=== PATIENT | female | born 1940 | race Caucasian/White ===

== ENCOUNTER 2017-05-25 18:28 | Inpatient (IN) ==
[2017-05-25 19:54] LABS: Hematocrit 28.6 % (35.3-44.9); Hemoglobin 9.2 g/dL (11.5-15.4); Mean Corpuscular HGB Conc 32.2 g/dL (31.6-35.5); Mean Corpuscular Hemoglobin 35.5 pg (28.0-33.3); Mean Corpuscular Volume 110.4 fL (83.0-100.0); Mean Platelet Volume 12.7 fL (9.4-12.4); Platelet Count 129 K/mcL (140-400); Red Blood Count 2.59 M/mcL (3.82-4.97); Red Cell Distribution Width 17.9 % (11.5-14.5)
[2017-05-25 20:20] LABS: Calcium 9.2 mg/dL (8.6-10.3); Potassium 4.3 mEq/L (3.5-5.1)
[2017-05-25 20:26] LABS: Thyroid Stimulating Hormone 4.969 mcIU/mL (0.340-5.600)
[2017-05-25] MEDS ORDERED: Furosemide 20 MG/2 ML VIAL IVP ONE (22:15)
--- NOTE | 2017-05-25 22:48 | Emergency Department Note ---
Disposition Clinical Impression: New onset a-fib Chest pain Qualifiers: Chest pain type: other chest pain Qualified Code(s): R07.89 - Other chest pain Dyspnea Qualifiers: Dyspnea type: unspecified Qualified Code(s): R06.00 - Dyspnea, unspecified Disposition: Admitted As Inpatient Condition: Good Referrals: Shady Man MD [Primary Care Provider] - Forms: ED Satisfaction Letter Time of Disposition: 23:00 General Adult HPI - General Chief complaint: ED Chest Pain Stated complaint: CP/SOB Time Seen by Provider: 05/25/17 21:19 Source: patient, family Mode of arrival: ambulatory Limitations: no limitations Nursing Notes Reviewed: Yes Vital Signs Reviewed: Yes - History of Present Illness HPI Narrative: 76-year-old female with significant past medical history of chronic kidney disease and anemia presenting to the emergency Department chief complaint of shortness of breath and chest pressure. Patient states this started about 3-4 days ago. She assumed it was due to her and anemia because this happens when her hemoglobin gets low. But today she started having more chest pressure which was abnormal and decided to come to the emergency department. Patient states chest pain came out of nowhere. It radiates mildly to her back in between her shoulder blades. She denies any nausea, vomiting or diaphoresis with this pain. Patient denies any fever or abdominal pain. Pain Scale: 4 - Related Data Home Medications Medication Instructions Recorded Confirmed Allopurinol [Zyloprim] 100 mg PO QAM 11/29/14 05/25/17 Aspirin Enteric Coated [Aspirin EC] 81 mg PO 11/29/14 05/25/17 Celecoxib [Celebrex] 200 mg PO QAM 11/29/14 05/25/17 Lisinopril [Zestril] 10 mg PO QAM 11/29/14 05/25/17 Omeprazole [PriLOSEC] 20 mg PO Q48H 11/29/14 05/25/17 Simvastatin [Zocor] 20 mg PO QAM 11/29/14 05/25/17 Cyanocobalamin (B-12) [Vitamin B12] 1,000 mcg IM QMONTH 10/08/15 05/25/17 Atenolol [Tenormin] 25 mg PO DAILY 05/25/17 05/25/17 Gabapentin [Neurontin] 100 mg PO HS 05/25/17 05/25/17 Allergies Allergy/AdvReac Type Severity Reaction Status Date / Time Amoxicillin [From Augmentin] AdvReac Vomiting Verified 05/19/17 10:42 clavulanic acid AdvReac Vomiting Verified 05/19/17 10:42 [From Augmentin] indomethacin [From Indocin] AdvReac Vomiting Verified 05/19/17 10:42 All systems ED: reviewed and negative except as stated. Constitutional: Reports: weakness Cardiovascular: Reports: chest pain Respiratory: Reports: dyspnea Past Medical History - Past Medical History Attestation: Yes The following information was validated with the patient. Medical history: Reports: DVT, GERD, hyperlipidemia, hypertension, renal disease , other Surgical history: Reports: cataract, hysterectomy Psychiatric history: Reports: anxiety COW WASHER history: Reports: no COW WASHER history - Social History Smoking Status: Never smoker Smokeless Tobacco Status: No Alcohol use: Reports: none Drug use: Reports: none Physical Exam - General Limitations: no limitations General appearance: alert, in no apparent distress - Head Head exam: atraumatic, normocephalic, normal inspection - Eye Eye exam: Present: normal appearance. Absent: scleral icterus, conjunctival injection - ENT ENT exam: normal exam, mucous membranes moist - Neck Neck exam: Present: normal inspection, full ROM. Absent: tenderness, meningismus - Chest Chest inspection: Present: normal inspection, symmetric chest wall rise. Absent : tenderness, rash - Respiratory Respiratory exam: Present: normal lung sounds bilaterally. Absent: respiratory distress, wheezes - Cardiovascular Cardiovascular exam: Present: regular rate, irregular rhythm, normal heart sounds - Abdominal Exam Abdominal exam: Present: soft, Non-Tender. Absent: distention, guarding, rebound - Extremities Exam Extremities exam: Present: normal inspection, full ROM - Neurological Exam Neurological exam: Present: alert, oriented X3 - Psychiatric Psychiatric exam: Present: normal affect, normal mood - Skin Skin exam: Present: warm, intact Course Course Narrative: 76-year-old female presenting to the emergency department with chief complaint of chest pain and shortness of breath. She attributed this to her anemia. The patient's basic lab work completed in triage shows a hemoglobin at 9.2 which is unchanged from previous readings. EKG completed did show new onset atrial fibrillation. Patient is alert and oriented 3 in the room with stable vital signs at this time. We will plan to admit the patient for new onset atrial fibrillation. Patient agrees to this plan. All other labs within normal limits. - Reevaluation(s) Reevaluation #1: Spoke with the hospitalist on-call Dr. Robertson who agrees to accept the patient at this time. Patient is alert and oriented 3 in the room and stable vital signs at this time. She agrees with this plan. Vital Signs Temperature 98.9 F 05/25/17 18:36 Pulse Rate 62 05/25/17 18:36 Respiratory Rate 16 05/25/17 18:36 Blood Pressure 169/75 05/25/17 18:36 O2 Sat by Pulse Oximetry 99 05/25/17 18:36 Temperature 98.9 F 05/25/17 18:36 Pulse Rate 62 05/25/17 21:58 Respiratory Rate 15 05/25/17 21:58 Blood Pressure 188/87 05/25/17 21:58 O2 Sat by Pulse Oximetry 94 05/25/17 21:58 Oxygen Delivery Oxygen Delivery Room Air Medical Decision Making - Lab Data Result diagrams: 05/25/17 19:11 05/25/17 19:11 Lab Results 05/25/17 05/25/17 05/25/17 Range/Units 19:11 19:11 19:11 WBC 3.6 L (4.3-11.1) K/mcL RBC 2.59 L (3.82-4.97) M/mcL Hgb 9.2 L (11.5-15.4) g/dL Hct 28.6 L (35.3-44.9) % MCV 110.4 H (83.0-100.0) fL MCH 35.5 H (28.0-33.3) pg MCHC 32.2 (31.6-35.5) g/dL RDW 17.9 H (11.5-14.5) % Plt Count 129 L (140-400) K/mcL MPV 12.7 H (9.4-12.4) fL Sodium 138 (136-145) mEq/L Potassium 4.3 (3.5-5.1) mEq/L Chloride 106 (98-107) mEq/L Carbon Dioxide 25 (23-29) mEq/L BUN 29 H (8-23) mg/dL Creatinine 1.21 H (0.60-1.20) mg/dL Est GFR ( Amer) 52 L (> 60) Est GFR (Non-Af Amer) 43 L (> 60) BUN/Creatinine Ratio 24 (6-26) Glucose 95 (70-105) mg/dL Calculated Osmolality 292 (280-300) Calcium 9.2 (8.6-10.3) mg/dL Troponin I < 0.03 (< 0.04) ng/mL TSH 4.969 (0.340-5.600) mcIU/mL - EKG Data EKG #1 EKG attestation: Yes I reviewed and interpreted this EKG. EKG results narrative: Atrial fibrillation. [address] and T-wave abnormality. QRS 78, QTC 438. No signs of acute ST segment elevation or ischemia noted. Compared to previous EKG completed on 05/21/2016 new Atrial fibrillation noted but no other significant changes. Attestation Statement - Attestation Attestation: I examined this patient and my medical decision-making was reviewed with the Resident Physician. I agree with the documented findings, disposition and treatment plan as described except to the extent set forth below. Initial EKG was questionable, some p-waves were seen but difficult to determine if they were regular. Rhythm strip convincing for a-fib. No ischemic changes. Has h/o MDS, baseline platelets 110s. Hospitalist to admit.
[2017-05-26] MEDS ORDERED: Gabapentin 100 MG CAPSULE PO ONE (00:59)
[2017-05-26] MEDS ORDERED: Acetaminophen 325 MG TABLET PO PRN (07:49)
[2017-05-26] MEDS ORDERED: Naloxone 0.4 MG/ML INJ IVP PRN (07:49)
[2017-05-26] MEDS ORDERED: *HR* HYDROcodone/Acet 5/325 mg TABLET PO PRN (07:49)
--- NOTE | 2017-05-26 07:56 | Internal Med History&Physical ---
Date of Encounter: 05/26/17 Time of Encounter: 09:49 Assessment and Plan (1) New onset a-fib Current visit: Yes Status: Acute HR currently controlled Symptoms may have dated back to 4 days Patient is on atenolol at home, will switch to metoprolol Cardiology eval Obtain ECHO CHADs score is 2 for age and HTN Patient with MDS and knoan pancytopenia I will defer anticoagulation to cardiology (2) CHF (congestive heart failure) Current visit: Yes Status: Acute Possibly diastolic Obtain ECHO Continue lasix IV 40mg daily Patient is on ASA, BB and ACEI continue same Monitor chem Strict I/O daily weights Flis restriction diet cardiology eval Troponin is negative, will not trend. Qualifiers: Heart failure type: unspecified Heart failure chronicity: unspecified Qualified Code(s): I50.9 - Heart failure, unspecified (3) Pancytopenia Current visit: Yes Status: Chronic (4) CAD (coronary artery disease) Current visit: Yes Status: Chronic as in CHF Continue home meds Qualifiers: Coronary Disease-Associated Artery/Lesion type: [place] artery [place] vs. transplanted heart: [place] heart Associated angina: without angina Qualified Code(s): I25.10 - Atherosclerotic heart disease of [place] coronary artery without angina pectoris (5) Chronic kidney disease, stage 3 Current visit: Yes Status: Chronic chem is at baseline, continue to monitor avoid nephrotoxins (6) Gout Current visit: Yes Status: Chronic continue allopurinol Qualifiers: Gout site: unspecified site Gout etiology: unspecified cause Chronicity: chronic Presence of tophus: without tophus Qualified Code(s): M1A.9XX0 - Chronic gout, unspecified, without tophus (tophi) (7) MDS (myelodysplastic syndrome) with 5q deletion Current visit: Yes Status: Chronic continue home meds, follows up with onc here Continue gabapentin for neuropathy Internal Medicine - H&P: HPI Chief complaint: Shortness of breath Admitted From: Home Plans for Post Hospital Care: Home History of present illness: Ms. Huitron is a 76 year old female with medical history of myelodysplasia, pancytopenia, GERD, history of DVT, chronic renal disease stage III, who presented to the ER with 4 days history of shortness of breath and 2 days history of chest pressure. She denies palpitations, but she reports substernal non-radiating chest pressure which started 2 days ago. She also reports mild leg swelling and shortness of breath on minimal exertion, she denies orthopnea, or PND. She denies nausea, vomiting, diarrhea, diaphoresis, she denies sick contacts, fever or chills Work up in the ER revealed CXR with interstitial pulmonary edema, Pulmonary vascular congestion and an EKG showed a new Afib. HR is controlled. TSH and Mag are WNL, other chem unremarkable, stable pancytopenia She received lasix which helped with some of her symptoms She will admitted inpatient for duresis, afib eval . She is not hypoxic. Past Med Surg Social Fam HX - Past Medical History Medical history: cancer, DVT, GERD, hyperlipidemia, hypertension, renal disease , other Psychiatric history: anxiety - Past Surgical History Surgical History: cataract, hysterectomy - Social History Smoking Status: Never smoker Smokeless Tobacco Status: No Alcohol use: none Drug use: none - Family History Mother Living Status: Hx Family Cancer: Yes (MULTIPLE MYELOMA) Father Living Status: Sister Living Status: Hx Family Cardiac Disorders: Yes (hypertension) Brother Living Status: Hx Family Cardiac Disorders: Yes (Hypertension) Internal Medicine - H&P: Meds Allopurinol [Zyloprim] 100 mg PO QAM 11/29/14 [History] Aspirin Enteric Coated [Aspirin EC] 81 mg PO HS 11/29/14 [History] Celecoxib [Celebrex] 200 mg PO QAM 11/29/14 [History] Lisinopril [Zestril] 10 mg PO QAM 11/29/14 [History] Omeprazole [PriLOSEC] 20 mg PO Q48H 11/29/14 [History] Simvastatin [Zocor] 20 mg PO QAM 11/29/14 [History] Cyanocobalamin (B-12) [Vitamin B12] 1,000 mcg IM QMONTH 10/08/15 [History] Atenolol [Tenormin] 25 mg PO DAILY 05/25/17 [History] Gabapentin [Neurontin] 100 mg PO HS 05/25/17 [History] 3 Allergy/AdvReac Type Severity Reaction Status Date / Time Amoxicillin [From Augmentin] AdvReac Vomiting Verified 05/19/17 10:42 clavulanic acid AdvReac Vomiting Verified 05/19/17 10:42 [From Augmentin] indomethacin [From Indocin] AdvReac Vomiting Verified 05/19/17 10:42 All Systems PM: A 10-system review of systems was performed and is negative for pertinent findings except as documented above in the HPI. - Constitutional Constitutional: no chills, no fever(s), no night sweats - EENT Eyes: no change in vision, no discharge, no pain, no photophobia Ears: no ear discharge, no ear pain, no tinnitus Nose, mouth and throat: no dysphagia, no nasal discharge, no neck pain, no sore throat - Cardiovascular Cardiovascular ROS IM: as per HPI - Respiratory Respiratory: as per HPI - Gastrointestinal Gastrointestinal: no abdominal pain, no diarrhea, no hematemesis, no hematochezia, no melena, no nausea, no vomiting - Genitourinary Genitourinary: no change in urinary stream, no dysuria, no flank pain, no hematuria - Musculoskeletal Musculoskeletal ROS IM: as per HPI - Integumentary Integumentary IM: no rash, no unusual bruising - Neurological Neurological ROS: as per HPI - Hematologic/Lymphatic Hematologic/Lymphatic: no easy bruising - Constitutional Vitals: Temp Pulse Resp BP Pulse Ox 98.6 F 65 14 142/77 93 05/26/17 07:32 05/26/17 07:32 05/26/17 07:32 05/26/17 07:32 05/26/17 07:32 General appearance: Present: A&O X 3, no acute distress, obese - Head Head exam: Present: atraumatic, normocephalic - Eye Eye exam: Present: PERRL, conjuntiva pink, sclera anicteric Pupils: Present: PERRL - Neck Neck exam general surgery: Present: supple, trachea midline. Absent: lymphadenopathy - Respiratory Respiratory exam: Present: rales - Cardiovascular Cardiovascular exam: Present: bradycardia, irregular rhythm, +S1, +S2. Absent: diastolic murmur, gallop, rubs, systolic murmur - GI/Abdominal GI/Abdominal exam: Present: normal bowel sounds, soft, no peritoneal signs. Absent: distended, tenderness - Extremities Exam Extremities exam: Present: pedal edema (trace), warm, radial pulses palpable and symmetrical. Absent: calf tenderness, cyanotic - Neurological Exam Neurological exam: Present: alert, CN II-XII intact, oriented X3, no focal deficits. Absent: pronater drift, facial droop, speech deficit - Skin Skin exam: Present: dry, intact Internal Med - H&P Results - Labs CBC & Chem 7: 05/25/17 19:11 05/25/17 19:11
[2017-05-26] MEDS ORDERED: Cyanocobalamin (B-12) 1,000 MCG/ML VIAL IM SCH (08:00)
[2017-05-26] MEDS: Furosemide 40 MG/4 ML VIAL IVP SCH (08:43)
[2017-05-26] MEDS: Aspirin Enteric Coated 81 MG Tablet PO SCH (08:58)
[2017-05-26] MEDS: *HR* Heparin 5,000 UNIT/ML VIAL SQ SCH ×3 (08:58→22:50)
--- NOTE | 2017-05-26 14:25 | Cardiology Consult Note ---
<Pal Garcia - Last Filed: 05/26/17 15:24> Date of Encounter: 05/26/17 Time of Encounter: 14:30 Assessment and Plan (1) New onset a-fib Current Visit: Yes Status: Acute Per Cardiology: Apparent new onset of atrial fibrillation. On Lopressor 12.5 mg by mouth twice a day. Currently rate controlled. Troponin negative 1. TSH stable. Net I&O - 3200ml. BNP only 400's, edema on CXR. Echo pending. Appears improved with IV Lasix. Further recommendations after echo. [facility] from 2011: Impression: Normal coronary angiography; there was no evidence of significant coronary artery disease. Regarding long-term anticoagulation, patient with history of DVT-- was on Coumadin, however discontinued due to severe anemia requiring blood transfusions. Noted to have to myelodysplastic syndrome and pancytopenia. Patient and sister aware of poor candidate for anticoagulation other than baby aspirin she is currently taking. They are aware of increased stroke risk. Education provided regarding strokelike symptoms and when to call 911. (2) MDS (myelodysplastic syndrome) with 5q deletion Current Visit: Yes Status: Chronic Per Cardiology: Oncology note reviewed from April 2017 and appears to be transfusion dependent. (3) Pancytopenia Current Visit: Yes Status: Chronic Per Cardiology: Appears stable. Discussion w patient/family: The assessment and plan as outlined above was discussed with the patient and/or family members who expressed understanding and agreement. All questions were answered. Thank you for involving us in the care of your patient. Please call with any questions. History of Present Illness Consult date: 05/26/17 Requesting physician: Rg Woodson Consult reason: afib Chief complaint: SOb, CP, Palps History of present illness: Ms. Huitron is a 76 year old female with a relevant past medical history of mild dysplastic syndrome, pancytopenia, CK D stage III, mild nonobstructive CAD , GERD. Cardiology consult for concerns of shortness of breath, palpitations, chest tightness and new onset A. fib. Patient reports the past few days increased shortness of breath at rest and with exertion, midsternal chest tightness/heaviness, and palpitations. She does report increased edema to bilateral lower extremities. She denies any other concerns or complaints. Reports past history of DVT and had been on Coumadin however discontinued due to anemia requiring blood transfusion. She denies any current active bleeding or blood loss. Reports currently with Lasix swelling has improved and shortness of breath and chest pain have resolved. Past Med Surg Social Fam HX - Past Medical History Attestation: Yes The following information was validated with the patient. Source: patient, old records reviewed, obtained from family Medical history: cancer, DVT, GERD, hyperlipidemia, hypertension, renal disease , other Psychiatric history: anxiety - Past Surgical History Surgical History: cataract, hysterectomy - Social History Smoking Status: Never smoker Smokeless Tobacco Status: No Alcohol use: none Drug use: none - Family History Mother Living Status: Hx Family Cancer: Yes (MULTIPLE MYELOMA) Father Living Status: Sister Living Status: Hx Family Cardiac Disorders: Yes (hypertension) Brother Living Status: Hx Family Cardiac Disorders: Yes (Hypertension) Medications and Allergies Allopurinol [Zyloprim] 100 mg PO QAM 11/29/14 [History] Aspirin Enteric Coated [Aspirin EC] 81 mg PO HS 11/29/14 [History] Celecoxib [Celebrex] 200 mg PO QAM 11/29/14 [History] Lisinopril [Zestril] 10 mg PO QAM 11/29/14 [History] Omeprazole [PriLOSEC] 20 mg PO Q48H 11/29/14 [History] Simvastatin [Zocor] 20 mg PO QAM 11/29/14 [History] Cyanocobalamin (B-12) [Vitamin B12] 1,000 mcg IM QMONTH 10/08/15 [History] Atenolol [Tenormin] 25 mg PO DAILY 05/25/17 [History] Gabapentin [Neurontin] 100 mg PO HS 05/25/17 [History] 3 Allergy/AdvReac Type Severity Reaction Status Date / Time Amoxicillin [From Augmentin] AdvReac Vomiting Verified 05/19/17 10:42 clavulanic acid AdvReac Vomiting Verified 05/19/17 10:42 [From Augmentin] indomethacin [From Indocin] AdvReac Vomiting Verified 05/19/17 10:42 All Systems Review: The remainder of the systems were reviewed and are negative - Cardiovascular Cardiovascular: as per HPI, chest pain at rest, dyspnea at rest, dyspnea on exertion, leg edema, palpitations Physical Examination Vital Signs, Last 4 Hours Temp Pulse Resp BP Pulse Ox 05/26/17 11:58 98.0 F 53 16 127/81 97 General: Conversant, No Apparent Distress HEENT: Atraumatic, Normocephaly, Mucus Membranes Moist Neck: No JVD, Normal carotid pulses Cardiac: No Murmur, Other (Irregularly irregular) Lungs: Normal Breath Sounds, No Wheeze, Rales, Rhonchi Neuro: Alert and responsive, No focal deficits noted Abdomen: Soft, Non-Tender Skin: No rashes noted on visualized skin Musculoskeletal: No Chest Wall Tenderness Extremities: No Clubbing, No Cyanosis, Normal Pulses, Other (+1 pitting edema to bilateral lower extremities) Results 05/25/17 19:11 05/25/17 19:11 Lab Results Laboratory Tests 05/25/17 05/25/17 05/25/17 19:11 19:11 19:11 Hgb 9.2 L Hct 28.6 L Plt Count 129 L Troponin I < 0.03 B-Natriuretic Peptide TSH 4.969 05/26/17 08:23 Hgb Hct Plt Count Troponin I B-Natriuretic Peptide 491 H TSH ITS Impressions Chest X-Ray 05/25/17 18:43 IMPRESSION: Findings suggest congestive heart failure D/ / Dani Andino MD / Dani Andino MD Interpreting Provider: Dani Andino MD Intake & Output 05/23/17 05/24/17 05/25/17 05/26/17 23:59 23:59 23:59 23:59 Intake Total 400 / 400 Output Total 2700 / 2700 Balance -2300 / -2300 Weight 107.048 kg 107.048 kg Active Medications Acetaminophen (Tylenol) 650 mg PO Q6HR PRN PRN Reason: Mild Pain/Fever Stop: 11/25/17 07:50 Hydrocodone Bitart/Acetaminophen ([place] 5-325 Mg) 1 tab PO Q6HR PRN PRN Reason: Moderate Pain Stop: 11/25/17 07:50 Allopurinol (Zyloprim) 100 mg PO QAM [facility] Stop: 11/25/17 09:01 Last Admin: 05/26/17 08:44 Dose: 100 mg Aspirin (Aspirin Ec) 81 mg PO DAILY [facility] Stop: 11/25/17 09:01 Last Admin: 05/26/17 08:58 Dose: 81 mg Cyanocobalamin (Vitamin B12) 1,000 mcg IM QMONTH [facility] Stop: 11/25/17 08:01 Last Admin: 05/26/17 08:44 Dose: Not Given Furosemide (Lasix) 40 mg IVP DAILY [facility] Stop: 11/25/17 09:01 Last Admin: 05/26/17 08:43 Dose: 40 mg Gabapentin (Neurontin) 100 mg PO HS [facility] Stop: 11/25/17 21:01 Heparin Sodium (Porcine) (Heparin) 5,000 unit SQ Q8HCO [facility] Stop: 11/25/17 08:16 Last Admin: 05/26/17 13:13 Dose: 5,000 unit Lisinopril (Zestril) 10 mg PO QAM [facility] PRN Reason: Protocol Stop: 11/25/17 09:01 Last Admin: 05/26/17 08:44 Dose: 10 mg Metoprolol Tartrate (Lopressor) 12.5 mg PO BID [facility] Stop: 11/25/17 09:01 Last Admin: 05/26/17 08:44 Dose: 12.5 mg Naloxone HCl (Narcan) 0.4 mg IVP Q2MIN PRN PRN Reason: SEE COMMENTS Stop: 11/25/17 07:50 Omeprazole (Prilosec) 20 mg PO Q48H [facility] PRN Reason: Protocol Stop: 11/25/17 08:01 Last Admin: 05/26/17 08:45 Dose: 20 mg Simvastatin (Zocor) 20 mg PO QAM [facility] PRN Reason: Protocol Stop: 11/25/17 09:01 Last Admin: 05/26/17 08:44 Dose: 20 mg - Imaging and Cardiology Echo: pending - EKG Interpretation EKG results cardiology: personally reviewed (AGhazal fib in the 70s), other (no tele to review, currently A. fib in the 60s on telemetry) Consult Discharge Plan - Plan Referrals: Shady Man MD [Primary Care Provider] - <Arnaud Jones - Last Filed: 05/27/17 16:05> Date of Encounter: 05/27/17 - Attending Attestation 76 YOF with moderate mitral stenosis and preserved EF on ECHO presents with pulmonary congestion, pleural effusions and interstitial edema now improved with diuresis. She has new onset afib unable to tolerate AC in the past due to severe anemia. She has MDS followed by oncology. MS with new onset Afib place patient at high risk for CVA and likely culprit for pulm edema/CHF Coumadin if okay with Oncology and safe to reduce risk of CVA If patient can tolerate AC consider antiarrythmic agent to prevent afib and CHF (in setting of moderate MS) Mitral valvotomy may be considered with her MS and recent CHF Assessment and Plan Discussion w patient/family: The assessment and plan as outlined above was discussed with the patient and/or family members who expressed understanding and agreement. All questions were answered. Thank you for involving us in the care of your patient. Please call with any questions. History of Present Illness History of present illness: Ms. Huitron is a 76 year old female All Systems Review: The remainder of the systems were reviewed and are negative Results 05/27/17 07:20 05/27/17 07:20 Lab Results 05/27/17 05/27/17 07:20 07:20 WBC 3.9 L Hgb 10.2 L Hct 30.8 L Plt Count 142 Sodium 140 Potassium 3.7 Chloride 104 Carbon Dioxide 26 BUN 31 H Creatinine 1.44 H Glucose 195 H Calcium 9.0 Magnesium 1.3 L
--- NOTE | 2017-05-26 20:18 | Electrocardiograph Report ---
[facility] Test Date: 2017-05-25 Pat Name: Lian Mack Department: 104 Room: 2S6 Gender: F Community Relations Liaison: : 1940 Requested By: Driss Caldwell Order Number: [id number] Reading MD: Humberto Marino DO Measurements Intervals [place] Rate: 70 P: NE: 0 QRS: 34 QRSD: 78 T: 11 QT: 418 QTc: 438 Interpretive Statements ATRIAL FIBRILLATION NONSPECIFIC ST & T-WAVE ABNORMALITY ABNORMAL RHYTHM ECG WARNING: DATA QUALITY MAY AFFECT INTERPRETATION Electronically Signed On 05-26-2017 20:16:59 EST by Humberto Marino DO
--- NOTE | 2017-05-26 20:21 | Electrocardiograph Report ---
[place] [facility] Test Date: 2017-05-25 Pat Name: Lian Inavale Department: 102 Room: 2S6 Gender: F Lithopone Charger: Ekp : 1940 Requested By: Colby Robertson Order Number: [id number] Reading MD: Humberto Marino DO Measurements Intervals [place] Rate: 63 P: [place]: 0 QRS: 34 QRSD: 84 T: 45 QT: 443 QTc: 450 Interpretive Statements ATRIAL FIBRILLATION NONSPECIFIC ST & T-WAVE ABNORMALITY ABNORMAL RHYTHM ECG Electronically Signed On 05-26-2017 20:19:59 EST by Humberto Marino DO
[2017-05-26] MEDS: Gabapentin 100 MG CAPSULE PO SCH (20:45)
[2017-05-27] MEDS: *HR* Heparin 5,000 UNIT/ML VIAL SQ SCH ×2 (05:51→14:45)
[2017-05-27 07:58] LABS: Basophils % 0.3 %; Hematocrit 30.8 % (35.3-44.9); Hemoglobin 10.2 g/dL (11.5-15.4); Immature Granulocytes % 3.6 % (0-4); Lymphocytes # 1.3 K/mcL (0.6-4.6); Lymphocytes % 32.7 %; Mean Corpuscular HGB Conc 33.1 g/dL (31.6-35.5); Mean Corpuscular Hemoglobin 36.2 pg (28.0-33.3); Mean Corpuscular Volume 109.2 fL (83.0-100.0); Mean Platelet Volume 12.3 fL (9.4-12.4); Monocytes # 0.2 K/mcL (0.0-1.3); Monocytes % 5.6 %; Neutrophils # 2.2 K/mcL (1.6-8.9); Platelet Count 142 K/mcL (140-400); Red Blood Count 2.82 M/mcL (3.82-4.97); Red Cell Distribution Width 18.2 % (11.5-14.5); Segmented Neutrophils % 56.8 %
[2017-05-27] MEDS: Furosemide 40 MG/4 ML VIAL IVP SCH (08:28)
[2017-05-27] MEDS: Aspirin Enteric Coated 81 MG Tablet PO SCH (08:34)
[2017-05-27] MEDS ORDERED: Celecoxib 200 MG CAPSULE PO SCH (09:15)
[2017-05-27 09:37] LABS: Magnesium 1.3 mg/dL (1.6-2.6); Potassium 3.7 mEq/L (3.5-5.1)
--- NOTE | 2017-05-27 16:51 | Internal Med Progress Note ---
Date of Encounter: 05/27/17 Time of Encounter: 13:00 - Assessment and plan (1) New onset a-fib Current Visit: Yes Status: Acute Assessment and plan: -Cardiology following recommendations to continue heparin drip -Further recommendations for hematology/oncology for recommendations of OAC due to history of MDS (2) CHF (congestive heart failure) Current Visit: Yes Status: Acute Assessment and plan: Dyspnea has improved with IV Lasix Continue IV diuresis Qualifiers: Heart failure type: unspecified Heart failure chronicity: unspecified Qualified Code(s): I50.9 - Heart failure, unspecified (3) Chronic kidney disease, stage 3 Current Visit: Yes Status: Chronic Assessment and plan: -Patient's creatinine is at baseline; continue to monitor (4) MDS (myelodysplastic syndrome) with 5q deletion Current Visit: Yes Status: Chronic Assessment and plan: -[facility] [employer] oncologist consult with recommendations for oral anticoagulation therapy due to paroxysmal A. fib and moderate mitral valve stenosis. -Patient's hemoglobin and platelet count is stable; continue to monitor (5) Anemia Current Visit: No Status: Chronic Assessment and plan: -Secondary to the above; continue to monitor Qualifiers: Anemia type: other cause Other causes of anemia: other cause, not classified Qualified Code(s): D64.89 - Other specified anemias (6) DVT prophylaxis Current Visit: Yes Status: Acute Assessment and plan: Patient on heparin drip as above - Subjective Interval history: Patient a symptomatically no longer with shortness of breath or chest pain. She remains on heparin drip due to paroxysmal atrial fibrillation and with new findings of moderate mitral valve stenosis on echocardiogram today - Constitutional Vitals: Temp Pulse Resp BP Pulse Ox 97.8 F 52 16 121/68 98 05/27/17 11:14 05/27/17 11:14 05/27/17 11:14 05/27/17 11:14 05/27/17 11:14 General appearance: Present: A&O X 3, no acute distress, obese - Respiratory Respiratory exam: Present: CTAB. Absent: accessory muscle use, rales, rhonchi, wheezes - Cardiovascular Cardiovascular exam: Present: RRR, +S1, +S2. Absent: diastolic murmur, gallop, rubs, systolic murmur - Skin Skin exam: Present: pallor Internal Medicine: Result - Labs CBC & Chem 7: 05/27/17 07:20 05/27/17 07:20 Labs: Short CBC 05/27/17 Range/Units 07:20 WBC 3.9 L (4.3-11.1) K/mcL Hgb 10.2 L (11.5-15.4) g/dL Hct 30.8 L (35.3-44.9) % Plt Count 142 (140-400) K/mcL Neutrophils # 2.2 (1.6-8.9) K/mcL BMP 05/27/17 07:20 Sodium 140 Potassium 3.7 Chloride 104 Carbon Dioxide 26 BUN 31 H Creatinine 1.44 H Glucose 195 H Calcium 9.0 - Impressions Impressions Echocardiogram 05/26/17 07:55 Impressions: LVEF 55%. Normal LV chamber size, wall thickness and function. Indeterminate diastolic function. Normal right ventricular structure and function. Severely dilated left atrium. Mildly thickened mitral valve leaflets. Mild mitral regurgitation. Moderate mitral stenosis. Mean gradient 7 mmHg (HR 57 bpm). Mild tricuspid regurgitation. Moderate pulmonary hypertension. Estimated RVSP is 54 mmHg. Left Ventricular Wall Motion: Rest Echo Findings All wall segments showed normal motion. Findings: Study Quality * Technically adequate exam. ECG Findings * Atrial fibrillation. Left Ventricle * LVEF 55%. * Normal LV chamber size, wall thickness and function. * Indeterminate diastolic function. Right Ventricle * Normal right ventricular structure and function. Left Atrium * Severely dilated left atrium. Right Atrium * Mildly dilated right atrium. Interatrial Septum * Interatrial septum not well evaluated. Aortic Valve * Trileaflet aortic valve with normal function. * No aortic regurgitation. * No aortic stenosis. Mitral Valve * Mildly thickened mitral valve leaflets. * Mild mitral regurgitation. * Moderate mitral stenosis. Mean gradient 7 mmHg (HR 57 bpm). Tricuspid Valve * Normal tricuspid valve structure. * Mild tricuspid regurgitation. * Moderate pulmonary hypertension. * Estimated RVSP is 54 mmHg. * Estimated RA pressure is 5 mmHg. Pulmonic Valve * Normal pulmonic valve structure and function. * No pulmonic regurgitation. Aorta * Normally sized aortic root. Pericardium * The pericardium appears normal. Trivial effusion noted. IVC * Normal IVC dimensions and inspiratory collapse. Pulmonary Artery * Normal visualized portions of the main pulmonary artery. Consult Discharge Plan - Plan Referrals: Shady Man MD [Primary Care Provider] -
[2017-05-27] MEDS ORDERED: *HR* Heparin 5,000 UNIT/ML VIAL IVP ONE (17:58)
[2017-05-27] MEDS ORDERED: *HR* Heparin 5,000 UNIT/ML VIAL IVP PRN ×2 (17:58)
[2017-05-27] MEDS ORDERED: Heparin 25,000 UNIT/500 ML D5W 25,000 UNIT/500 ML BAG IVC SCH (18:00)
[2017-05-27 18:42] LABS: Hematocrit 29.5 % (35.3-44.9); Hemoglobin 9.6 g/dL (11.5-15.4); Mean Corpuscular HGB Conc 32.5 g/dL (31.6-35.5); Mean Corpuscular Hemoglobin 35.3 pg (28.0-33.3); Mean Corpuscular Volume 108.5 fL (83.0-100.0); Mean Platelet Volume 12.3 fL (9.4-12.4); Platelet Count 134 K/mcL (140-400); Red Blood Count 2.72 M/mcL (3.82-4.97); Red Cell Distribution Width 18.2 % (11.5-14.5)
[2017-05-27 18:50] LABS: INR 1.1; Prothrombin Time 11.5 Seconds (9.4-12.1)
[2017-05-27 18:53] LABS: Activated Partial Thrombo Time 32.8 Seconds (26.0-36.0)
[2017-05-27] MEDS: Gabapentin 100 MG CAPSULE PO SCH (19:50)
[2017-05-28 01:48] LABS: Activated Partial Thrombo Time > 360.0 Seconds (26.0-36.0)
[2017-05-28 01:58] LABS: Heparin anti-factor XA UFH 1.77 IU/mL (0.30-0.70)
[2017-05-28 08:25] LABS: Basophils % 0.5 %; Eosinophils # 0.1 K/mcL (0.0-0.6); Eosinophils % 1.2 %; Hematocrit 27.4 % (35.3-44.9); Hemoglobin 8.8 g/dL (11.5-15.4); Immature Granulocytes % 11.3 % (0-4); Lymphocytes # 1.3 K/mcL (0.6-4.6); Lymphocytes % 30.1 %; Mean Corpuscular HGB Conc 32.1 g/dL (31.6-35.5); Mean Corpuscular Hemoglobin 35.1 pg (28.0-33.3); Mean Corpuscular Volume 109.2 fL (83.0-100.0); Mean Platelet Volume 12.2 fL (9.4-12.4); Monocytes # 0.3 K/mcL (0.0-1.3); Monocytes % 7.5 %; Neutrophils # 2.1 K/mcL (1.6-8.9); Platelet Count 139 K/mcL (140-400); Red Blood Count 2.51 M/mcL (3.82-4.97); Segmented Neutrophils % 49.4 %
[2017-05-28 09:11] LABS: Activated Partial Thrombo Time > 360.0 Seconds (26.0-36.0)
[2017-05-28 09:22] LABS: Heparin anti-factor XA UFH 1.54 IU/mL (0.30-0.70)
[2017-05-28] MEDS ORDERED: Apixaban 5 MG TABLET PO SCH (09:45)
[2017-05-28] MEDS: Furosemide 40 MG/4 ML VIAL IVP SCH (09:53)
[2017-05-28 10:01] LABS: Calcium 8.6 mg/dL (8.6-10.3); Potassium 3.7 mEq/L (3.5-5.1)
[2017-05-28 11:20] VITALS: BP 126/54
[2017-05-28] MEDS: Aspirin Enteric Coated 81 MG Tablet PO SCH (11:30)
--- NOTE | 2017-05-28 11:56 | Oncology Inp Consult Note ---
<Mercedes Newton L - Last Filed: 05/28/17 18:12> Date of Encounter: 05/28/17 Time of Encounter: 11:54 Assessment and Plan (1) MDS (myelodysplastic syndrome) with 5q deletion Status: Chronic Assessment and plan: Ms. 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 She receives Aranesp and B12 injections at our clinic. Previously treated with Revlimid however this was stopped due to worsening cytopenias. Hematology consult and for anticoagulation recommendations the setting of new onset A. fib. Discussed case with Dr. Blake, patient's treating billing representative, who agrees with anticoagulation along with continued close monitoring at this time. Recommendation made for Coumadin along with Coumadin clinic referral due to patient's CKD. Discussed with cardiology, who also agree with recommendation for Coumadin. Would defer to cardiology for recommendation for need for bridging. Hospitalist updated on plan. Her hemoglobin has been stable, currently hemoglobin is 8.8 this morning, hemoglobin ranges anywhere from 8-9 typically. Platelet count currently 139, platelets have been stable for quite some time. Patient and patient's family report no signs and symptoms of bleeding however voiced concern over one small object in patients urinary hat which appeared to be pink tinged. Will order UA. Patient reports no other urinary symptoms. No s/ s bleeding at this time. Patient and family aware that concern with anticoagulation is bleeding and educated on s/s to report. Patient also reports right lower extremity pain and tenderness to popliteal area , we will order bilateral lower extremity venous Doppler to assess for DVT and to establish baseline exam since starting Coumadin. Venous dopper revealed RLE chronic DVT with no acute findings. She will have a close follow-up arrangements with Dr. Blake for continued monitoring. Please refer to Dr. Mayes's attestation for additional details. - Data of Consult Patient: known to practice within the last 3 years Consult date: 05/28/17 Requesting Physician: Chance Quispe Primary Care Provider: Shady Man MD - Consult Narrative Reason for consult: MDS, anticoagulation recommendations History of present illness: Ms. Huitron is a 76 year old female medical history of myelodysplasia, pancytopenia, GERD, history of DVT andchronic renal disease stage III. Patient presented to the ER with complaints of shortness of breath for the past 4 days and onset of chest pressure 2 days prior to admission. She also reported mild lower extremity edema and shortness of breath on exertion. Work up in the ER revealed CXR with interstitial pulmonary edema, Pulmonary vascular congestion and an EKG showed a new onset Afib. HR is controlled. She was admitted with cardiology consult for further A. fib evaluation. Oncology consult for further recommendations for anticoagulation in the setting of new onset A. fib. Mrs. Huitron is a patient of Dr. Serrano at the [facility]. She has diagnosis of MDS with 5q deletion status post bone marrow biopsy in 02/09/2015. She was on revlimid but this was stopped due to worsening cytopenias. She is transfusion dependent and receives Aranesp injections along with B12 injections monthly. She has a history of one episode of DVT which was precipitated by a prolonged car ride, hypercoagulable workup was not tested. Her coumadin was stopped after one year when she had presented with a low hgb, this was an appropriate measure at the time being that this is the only history of clot which was provoked in nature. Past Med Surg Social Fam HX - Past Medical History Medical history: cancer, DVT, GERD, hyperlipidemia, hypertension, renal disease , other Psychiatric history: anxiety - Past Surgical History Surgical History: cataract, hysterectomy - Social History Smoking Status: Never smoker Smokeless Tobacco Status: No Alcohol use: none Drug use: none - Family History Mother Living Status: Hx Family Cancer: Yes (MULTIPLE MYELOMA) Father Living Status: Sister Living Status: Hx Family Cardiac Disorders: Yes (hypertension) Brother Living Status: Hx Family Cardiac Disorders: Yes (Hypertension) Medications and Allergies Allopurinol [Zyloprim] 100 mg PO QAM 11/29/14 [History] Aspirin Enteric Coated [Aspirin EC] 81 mg PO HS 11/29/14 [History] Celecoxib [Celebrex] 200 mg PO QAM 11/29/14 [History] Lisinopril [Zestril] 10 mg PO QAM 11/29/14 [History] Omeprazole [PriLOSEC] 20 mg PO Q48H 11/29/14 [History] Simvastatin [Zocor] 20 mg PO QAM 11/29/14 [History] Cyanocobalamin (B-12) [Vitamin B12] 1,000 mcg IM QMONTH 07/11/16 [History] Gabapentin [Neurontin] 100 mg PO HS 05/25/17 [History] Metoprolol [Lopressor] 12.5 mg PO BID #60 tablet 05/28/17 [Rx] Warfarin [Coumadin] 5 mg PO 1800 #30 tablet 05/28/17 [Rx] 3 Allergy/AdvReac Type Severity Reaction Status Date / Time Amoxicillin [From Augmentin] AdvReac Vomiting Verified 05/19/17 10:42 clavulanic acid AdvReac Vomiting Verified 05/19/17 10:42 [From Augmentin] indomethacin [From Indocin] AdvReac Vomiting Verified 05/19/17 10:42 Constitutional: Present: weakness. Absent: chills, fever(s), weight loss Eyes: Absent: change in vision Nose, mouth and throat: Absent: mouth lesions Cardiovascular: Present: as per HPI Additional comments: chest pressure has resolved since her admission Respiratory: Present: dyspnea on exertion. Absent: pain on inspiration, pain with cough Gastrointestinal: Absent: abdominal pain, hematemesis, hematochezia, melena, nausea, vomiting Genitourinary: Absent: difficulty urinating, dysuria, menorrhagia Additional comments: refer to A&P Musculoskeletal: Present: muscle weakness Integumentary: Absent: wounds Neurological: Absent: focal weakness, frequent falls Hematologic/Lymphatic: Present: as per HPI Oncology - Exam - Constitutional Vitals: Temp Pulse Resp BP Pulse Ox 98 F 78 17 126/54 97 05/28/17 11:15 05/28/17 11:15 05/28/17 11:15 05/28/17 11:15 05/28/17 11:15 General appearance: cooperative, no acute distress, no febrile - Head Head exam: Present: atraumatic - Respiratory Respiratory exam: Present: decreased breath sounds, CTAB - Cardiovascular Cardiovascular exam: Present: irregular rhythm - GI/Abdominal GI/Abdominal exam: Present: normal bowel sounds, soft. Absent: tenderness - Extremities Exam Additional comments: RLE edema which is chronic, patient reports recently worsened but has improved back to baseline since admission She also reports tenderness/pain to her right popliteal area - Neurological Exam Neurological exam: Present: alert, oriented X3, no focal deficits, strengths equal and symetr throughout - Psychiatric Psychiatric exam: Present: normal affect, normal mood - Skin Skin exam: Present: normal color, warm Oncology - Results Labs: Short CBC 05/27/17 05/28/17 Range/Units 18:17 08:05 WBC 4.6 4.2 L (4.3-11.1) K/mcL Hgb 9.6 L 8.8 L (11.5-15.4) g/dL Hct 29.5 L 27.4 L (35.3-44.9) % Plt Count 134 L 139 L (140-400) K/mcL BMP 05/28/17 08:05 Sodium 139 Potassium 3.7 Chloride 102 Carbon Dioxide 29 BUN 32 H Creatinine 1.53 H Glucose 156 H Calcium 8.6 Consult Discharge Plan - Plan Instructions: Metoprolol (By mouth), Warfarin (By mouth), Atrial Fibrillation ( GEN), Potassium Content of Foods List (GEN), Myelodysplastic Syndromes (DC) Additional Instructions: Please f/u with cardio and hemo - to call to make f/u appointments. If not notified by Thursday please call [phone] Appointment with Coumadin Clinic off of [address] (old [facility] across from [facility]) 06/03/17 at 0900 please make sure to make this appointment. Call [phone] with questions. Referrals: Shady Man MD [Primary Care Provider] - (Please f/u with PCP in 7-10 days ) Prescriptions: Metoprolol [Lopressor] 12.5 mg PO BID #60 tablet Warfarin [Coumadin] 5 mg PO 1800 #30 tablet <[id number] S - Last Filed: 05/28/17 19:35> Date of Encounter: 05/28/17 - Data of Consult Requesting Physician: Chance Quispe Primary Care Provider: Shady aMn MD - Consult Narrative History of present illness: Ms. Huitron is a 76 year old female Oncology - Exam - Constitutional Vitals: Temp Pulse Resp BP Pulse Ox 98 F 78 17 126/54 97 05/28/17 11:15 05/28/17 11:15 05/28/17 11:15 05/28/17 11:15 05/28/17 11:15 Oncology - Results Labs: Short CBC 05/28/17 Range/Units 08:05 WBC 4.2 L (4.3-11.1) K/mcL Hgb 8.8 L (11.5-15.4) g/dL Hct 27.4 L (35.3-44.9) % Plt Count 139 L (140-400) K/mcL Neutrophils # 2.1 (1.6-8.9) K/mcL BMP 05/28/17 08:05 Sodium 139 Potassium 3.7 Chloride 102 Carbon Dioxide 29 BUN 32 H Creatinine 1.53 H Glucose 156 H Calcium 8.6 - Attending Attestation I have seen and examined this patient and agree with Ms. Newton's assessment. She has new onset atrial fibrillation. Given her CHADS score and risk of CVA, anticoagulation has been recommended by cardiology. Patient did have a history of anemia in 2015 was initially attributed to anticoagulation. However, in retrospect this was secondary to MDS. As such, she may be discharged home on Coumadin as the preference of Dr. Braxton. Eliquis would also be a reasonable option for this patient at 2.5 mg twice a day. We will schedule follow-up with Dr. Braxton soon after discharge. She will follow cardiology nearly one month. She may be discharged from our perspective.
[2017-05-28 12:46] LABS: INR 1.1; Prothrombin Time 12.3 Seconds (9.4-12.1)
[2017-05-28 12:51] LABS: Activated Partial Thrombo Time 78.2 Seconds (26.0-36.0)
--- NOTE | 2017-05-28 16:02 | Cardiology Progress Note ---
Date of Encounter: 05/28/17 Time of Encounter: 16:00 Assessment and Plan (1) Mitral stenosis Current Visit: Yes Status: Acute moderate MS, with afib likely high risk for CVA, appreciate oncology okay to start AC coumadin is ideal due to likely valvular afib Qualifiers: Cardiac valve disease etiology: etiology unspecified Qualified Code(s): I05.0 - Rheumatic mitral stenosis (2) Anemia Current Visit: No Status: Chronic Followed by Oncology okay with AC to reduce risk of CVA Qualifiers: Anemia type: other cause Other causes of anemia: other cause, not classified Qualified Code(s): D64.89 - Other specified anemias (3) New onset a-fib Current Visit: Yes Status: Acute Rate control at this time until 30 days when the patient can be started on antiarrythmic to convert to sinus rythm or DANTE/CVE. This would help her hemodynamically due to her MS + afib Discussion w patient/family: The assessment and plan as outlined above was discussed with the patient and/or family members who expressed understanding and agreement. All questions were answered. Thank you for involving us in the care of your patient. Please call with any questions. Subjective Principal diagnosis: Afib Interval history: mproved HR and no complaints of chest pain or SOB Results 05/28/17 08:05 05/28/17 08:05 Lab Results 05/27/17 05/27/17 05/28/17 18:17 18:17 01:06 WBC 4.6 Hgb 9.6 L Hct 29.5 L Plt Count 134 L INR 1.1 APTT 32.8 > 360.0 H* D Sodium Potassium Chloride Carbon Dioxide BUN Creatinine Glucose Calcium 05/28/17 05/28/17 05/28/17 08:05 08:05 08:05 WBC 4.2 L Hgb 8.8 L Hct 27.4 L Plt Count 139 L INR APTT > 360.0 H* Sodium 139 Potassium 3.7 Chloride 102 Carbon Dioxide 29 BUN 32 H Creatinine 1.53 H Glucose 156 H Calcium 8.6 05/28/17 12:30 WBC Hgb Hct Plt Count INR 1.1 APTT 78.2 H D Sodium Potassium Chloride Carbon Dioxide BUN Creatinine Glucose Calcium Consult Discharge Plan - Plan Referrals: Shady Man MD [Primary Care Provider] -
[2017-05-28] MEDS ORDERED: *HR* Warfarin 5 MG TABLET PO ONE (16:57)
--- NOTE | 2017-05-28 17:08 | Discharge Summary ---
- NOTES TO OUTPATIENT PROVIDER Notes to Outpatient Provider: Patient to follow-up at Coumadin clinic on 06/03/17 to monitor INR for oral anticoagulation therapy for atrial fibrillation Orders not resulted at time of discharge: Pending orders 05/28/17 08:05 Complete Blood Count [HEME] Routine 05/28/17 14:54 Urinalysis Reflex Cult & Micro [URIN] Routine Date of Encounter: 05/28/17 Time of Encounter: 11:00 - Discharge Diagnosis (1) New onset a-fib Priority: Primary Status: Acute (2) CHF (congestive heart failure) Priority: Primary Status: Acute Qualifiers: Heart failure type: unspecified Heart failure chronicity: unspecified Qualified Code(s): I50.9 - Heart failure, unspecified (3) Chronic kidney disease, stage 3 Priority: Secondary Status: Chronic (4) MDS (myelodysplastic syndrome) with 5q deletion Priority: Secondary Status: Chronic (5) Anemia Priority: Secondary Status: Chronic Qualifiers: Anemia type: other cause Other causes of anemia: other cause, not classified Qualified Code(s): D64.89 - Other specified anemias Hospital course: Patient is a 76-year-old female with past medical history significant for myelodysplasia, pancytopenia, GERD, history of DVT, chronic renal disease stage III, who presented to the ER with 4 days history of shortness of breath and 2 days history of chest pressure. She reported that her substernal non-radiating chest pressure which started 2 days ago. She also reports mild leg swelling and shortness of breath on minimal exertion, she denies orthopnea, or PND. Work up in the ER revealed CXR with interstitial pulmonary edema, pulmonary vascular congestion and an EKG showed a new Afib. HR is controlled. TSH and Mag are WNL, other chemistry unremarkable, stable pancytopenia. She received Lasix which helped with some of her symptoms. She was admitted inpatient for the diuresis for congestive heart failure and atrial fibrillation management. During patients hospital stay her symptoms improved with treatment of her CHF with IV diuresis. Cardiology was consulted with recommendations for beta lena for management of her atrial fibrillation with RVR. Recommendations also for oral anticoagulation and hematology oncology was consulted due to patients history of MDS with recommendations to proceed with oral anticoagulation with Coumadin. She will be discharged to take Coumadin 5 mg daily and to follow-up at Coumadin clinic and to continue beta lena for rate control of atrial fibrillation. - Time Spent with Patient Total time spent providing and/or coordinating discharge services: Less than 30 minutes - Discharge Medications Prescriptions: Metoprolol [Lopressor] 12.5 mg PO BID #60 tablet Warfarin [Coumadin] 5 mg PO 1800 #30 tablet Home Medications: Allopurinol [Zyloprim] 100 mg PO QAM 11/29/14 [History] Aspirin Enteric Coated [Aspirin EC] 81 mg PO HS 11/29/14 [History] Celecoxib [Celebrex] 200 mg PO QAM 11/29/14 [History] Lisinopril [Zestril] 10 mg PO QAM 11/29/14 [History] Omeprazole [PriLOSEC] 20 mg PO Q48H 11/29/14 [History] Simvastatin [Zocor] 20 mg PO QAM 11/29/14 [History] Cyanocobalamin (B-12) [Vitamin B12] 1,000 mcg IM QMONTH 10/08/15 [History] Gabapentin [Neurontin] 100 mg PO HS 05/25/17 [History] Metoprolol [Lopressor] 12.5 mg PO BID #60 tablet 05/28/17 [Rx] Warfarin [Coumadin] 5 mg PO 1800 #30 tablet 05/28/17 [Rx] Allergies/Adverse Reactions: 3 Allergy/AdvReac Type Severity Reaction Status Date / Time Amoxicillin [From Augmentin] AdvReac Vomiting Verified 05/19/17 10:42 clavulanic acid AdvReac Vomiting Verified 05/19/17 10:42 [From Augmentin] indomethacin [From Indocin] AdvReac Vomiting Verified 05/19/17 10:42 Date of admission: 05/26/17 07:49 Primary care physician: Shady Man MD Consults: 05/27/17 16:46 Consult to Oncology Hematology [CONS] Routine Consulting Provider: Jass Mayes Reason for Consult: Anticoagulation therapy with history of MDS Time Notified: 16:30 Call Completed: Yes - Constitutional Vitals: Temp Pulse Resp BP Pulse Ox 98 F 78 17 126/54 97 05/28/17 11:15 05/28/17 11:15 05/28/17 11:15 05/28/17 11:15 05/28/17 11:15 General appearance: Present: A&O X 3, no acute distress, obese - Respiratory Respiratory exam: Present: CTAB. Absent: accessory muscle use, rales, rhonchi, wheezes - Cardiovascular Cardiovascular exam: Present: RRR, +S1, +S2. Absent: diastolic murmur, gallop, rubs, systolic murmur - Skin Skin exam: Present: pallor - Patient Status Disposition: Home, Self-Care Condition: Good - Discharge Instructions Follow Up With: Shady Man MD [Primary Care Provider] -
[2017-05-28 17:57] LABS: Platelet Estimate Normal (Normal)
[2017-05-28 17:58] LABS: Reactive Lymphocytes Present (Not Present)
[2017-05-28 21:20] LABS: Bilirubin,Urine Negative (Negative); Blood,Urine Negative (Negative); Clarity,Urine Clear (Clear); Color,Urine Yellow (Yellow); Glucose,Urine (UA) Normal (Normal); Ketones,Urine Negative (Negative); Leukocyte Esterase,Urine Negative (Negative); Nitrite,Urine Negative (Negative); PH,Urine 6.5 pH Units (5.0-8.0); Protein,Urine Negative (Neg-Trace); Specific Gravity,Urine 1.006 (1.010-1.025); Urobilinogen,Urine Normal (Normal)
== END 2017-05-28 19:14 | disposition home or self-care (01) | DRG 308 ==
LOC: 2SOUTHHOLD 18:28 → EMEROO 18:28 → 2SOUTHHOLD 05-26 00:10 → SUATTDRO 05-26 07:49
PROVIDERS: ADMIT Internal Medicine; ATTEND Hospitalist

== ENCOUNTER 2019-09-18 19:20 | Observation (INO) ==
[2019-09-18 20:07] LABS: Hematocrit 26.7 % (35.3-44.9); Hemoglobin 8.2 g/dL (11.5-15.4); Mean Corpuscular HGB Conc 30.7 g/dL (31.6-35.5); Mean Corpuscular Hemoglobin 31.8 pg (28.0-33.3); Mean Corpuscular Volume 103.5 fL (83.0-100.0); Monocytes # 0.4 K/mcL (0.0-1.3); Nucleated Red Blood Cells 0.5 /100 WBC (0); Platelet Count 241 K/mcL (140-400); Red Blood Count 2.58 M/mcL (3.82-4.97); Red Cell Distribution Width 26.1 % (11.5-14.5)
[2019-09-18 20:23] LABS: Anisocytosis 2+ (Not Present); Basophils # 0.1 K/mcL (0.0-0.2); Lymphocytes # 1.1 K/mcL (0.6-4.6); Macrocytosis Present (Not Present); Microcytosis Present (Not Present); Neutrophils # 4.4 K/mcL (1.6-8.9); Platelet Estimate Normal (Normal)
[2019-09-18 20:24] LABS: Large Platelets Present (Not Present)
[2019-09-18 20:27] LABS: Albumin 4.1 g/dL (3.5-5.7); Albumin/Globulin Ratio 1.3 (1.1-2.2); Bilirubin,Total 1.2 mg/dL (0.3-1.0); Calcium 8.8 mg/dL (8.6-10.3); Globulin 3.1 g/dL (2.4-3.5); Potassium 4.2 mEq/L (3.5-5.1); Total Protein 7.2 g/dL (6.4-8.9)
[2019-09-18 20:30] LABS: Troponin I 0.07 ng/mL (< 0.04)
[2019-09-18] MEDS ORDERED: Azithromycin 500 MG in D5% in Water 250 ML IVPB ONE (22:20)
[2019-09-18] MEDS ORDERED: cefTRIAXone 1,000 MG in Water for inj. (sterile) 10 ML IVP ONE (22:27)
[2019-09-19 00:44] LABS: INR 1.9; Prothrombin Time 21.1 Seconds (9.4-12.1)
[2019-09-19] MEDS: Furosemide 20 MG/2 ML VIAL IVP SCH ×2 (03:54→07:46)
[2019-09-19 04:36] LABS: Hemoglobin 7.6 g/dL (11.5-15.4)
[2019-09-19 04:38] LABS: Immature Platelets 25.1 % (1.1-6.1); Mean Corpuscular HGB Conc 29.2 g/dL (31.6-35.5); Mean Corpuscular Hemoglobin 30.8 pg (28.0-33.3); Mean Corpuscular Volume 105.3 fL (83.0-100.0); Mean Platelet Volume 14.3 fL (9.4-12.4); Platelet Count 211 K/mcL (140-400); Red Blood Count 2.47 M/mcL (3.82-4.97); Red Cell Distribution Width 25.7 % (11.5-14.5); White Blood Count 4.7 K/mcL (4.3-11.1)
[2019-09-19 04:41] LABS: INR 1.9
[2019-09-19 04:56] LABS: Albumin/Globulin Ratio 1.4 (1.1-2.2); Bilirubin,Total 1.2 mg/dL (0.3-1.0); Calcium 9.3 mg/dL (8.6-10.3); Globulin 2.9 g/dL (2.4-3.5); Lymphocytes # 0.8 K/mcL (0.6-4.6); Monocytes # 0.2 K/mcL (0.0-1.3); Neutrophils # 3.8 K/mcL (1.6-8.9); Potassium 4.2 mEq/L (3.5-5.1); Reactive Lymphocytes Present (Not Present); Total Protein 6.9 g/dL (6.4-8.9)
[2019-09-19 04:57] LABS: Anisocytosis 2+ (Not Present); Large Platelets Present (Not Present); Macrocytosis Present (Not Present); Microcytosis Present (Not Present); Platelet Estimate Normal (Normal)
[2019-09-19] MEDS ORDERED: 0.9 % Sodium Chloride Mini Bag 100 ML ONE (07:32)
[2019-09-19] MEDS ORDERED: cefTRIAXone 1,000 MG in Water for inj. (sterile) 10 ML IVPB SCH (08:00)
[2019-09-19 08:22] VITALS: BP 172/77
[2019-09-19] MEDS ORDERED: cefTRIAXone 1,000 MG in 0.9 % Sodium Chloride Mini Bag 100 ML IVPB SCH (09:00)
[2019-09-19] MEDS ORDERED: Acetaminophen 325 MG TABLET PO PRN (10:42)
[2019-09-19] MEDS ORDERED: Azithromycin 500 MG in 0.9 % Sodium Chloride 250 ML IVPB SCH (18:00)
[2019-09-19] MEDS ORDERED: Warfarin perPT PO PRN (18:00)
[2019-09-19] MEDS ORDERED: *HR* Warfarin 2.5 MG TABLET PO ONE (18:00)
[2019-09-19] MEDS ORDERED: Gabapentin 100 MG CAPSULE PO SCH (21:00)
[2019-09-19] MEDS ORDERED: allopurinoL 100 MG TABLET PO SCH (21:00)
[2019-09-20] MEDS ORDERED: lisinopriL 10 MG TABLET PO SCH (09:00)
[2019-09-20] MEDS ORDERED: Aspirin 81 MG TAB.CHEW PO SCH (09:00)
== END 2019-09-19 13:50 | disposition home or self-care (01) ==
LOC: EMEROOARM 19:20 → 2NENU 19:20
PROVIDERS: ADMIT Student in an Organized Health Care Education/Training Program; ATTEND Student in an Organized Health Care Education/Training Program

== ENCOUNTER 2020-10-12 17:27 | Inpatient (IN) ==
[2020-10-12 18:46] LABS: Nucleated Red Blood Cells 0.4 /100 WBC (0)
[2020-10-12 18:46] LABS: VBG Ionized Calcium 1.19 mmol/L (1.15-1.35)
[2020-10-12 18:48] LABS: Hematocrit 23.5 % (35.3-44.9); Immature Platelets 26.3 % (1.1-6.1); Mean Corpuscular HGB Conc 29.8 g/dL (31.6-35.5); Mean Platelet Volume 13.6 fL (9.4-12.4); Platelet Count 570 K/mcL (140-400); White Blood Count 16.8 K/mcL (4.3-11.1)
[2020-10-12 19:04] LABS: Calcium 8.7 mg/dL (8.6-10.3); Magnesium 1.5 mg/dL (1.6-2.6); Phosphorous 3.6 mg/dL (2.7-4.5); Potassium 4.3 mEq/L (3.5-5.1)
[2020-10-12 19:10] LABS: Troponin I 0.06 ng/mL (< 0.04)
[2020-10-12 19:34] LABS: Eosinophils # 0.7 K/mcL (0.0-0.6); Lymphocytes # 1.7 K/mcL (0.6-4.6); Neutrophils # 9.7 K/mcL (1.6-8.9)
[2020-10-12 19:35] LABS: Anisocytosis 1+ (Not Present); Large Platelets Present (Not Present); Poikilocytosis 1+ (Not Present); Polychromasia 1+ (Not Present)
[2020-10-12 19:36] LABS: Smudge Cells Present (Not Present)
[2020-10-12 19:37] LABS: Platelet Estimate Increased (Normal)
[2020-10-12] MEDS ORDERED: 0.9 % Sodium Chloride 500 ML ONE (22:08)
[2020-10-12 22:10] LABS: INR 2.2
[2020-10-12 22:13] LABS: Activated Partial Thrombo Time 34.1 Seconds (26.0-36.0)
[2020-10-12] MEDS ORDERED: Acetaminophen 325 MG TABLET PO ONE (22:16)
[2020-10-12] MEDS ORDERED: Ondansetron 4 MG/2 ML VIAL IVP PRN (22:30)
[2020-10-12] MEDS ORDERED: Naloxone 0.4 MG/ML INJ IVP PRN (22:30)
[2020-10-12] MEDS ORDERED: Magnesium Sulfate 1 GM/102 ML PIGGYBACK IVPB ONE (22:39)
[2020-10-13] MEDS ORDERED: 0.9 % Sodium Chloride 500 ML ONE (00:11)
[2020-10-13 02:44] LABS: Hemoglobin 6.6 g/dL (11.5-15.4); Nucleated Red Blood Cells 0.3 /100 WBC (0)
[2020-10-13 02:46] LABS: Hematocrit 21.8 % (35.3-44.9); Immature Platelets 27.5 % (1.1-6.1); Mean Corpuscular HGB Conc 30.3 g/dL (31.6-35.5); Mean Corpuscular Hemoglobin 28.1 pg (28.0-33.3); Mean Corpuscular Volume 92.8 fL (83.0-100.0); Platelet Count 478 K/mcL (140-400); Red Blood Count 2.35 M/mcL (3.82-4.97); Red Cell Distribution Width 19.6 % (11.5-14.5); White Blood Count 15.1 K/mcL (4.3-11.1)
[2020-10-13 02:52] LABS: Calcium 8.9 mg/dL (8.6-10.3); Potassium 4.7 mEq/L (3.5-5.1); Troponin I 0.06 ng/mL (< 0.04)
[2020-10-13] MEDS ORDERED: Furosemide 40 MG/4 ML VIAL IVP ONE (03:42)
[2020-10-13 04:11] LABS: Anisocytosis 1+ (Not Present); Basophils # 0.3 K/mcL (0.0-0.2); Eosinophils # 0.3 K/mcL (0.0-0.6); Lymphocytes # 2.4 K/mcL (0.6-4.6); Monocytes # 0.3 K/mcL (0.0-1.3); Neutrophils # 10.3 K/mcL (1.6-8.9); Platelet Estimate Increased (Normal); Reactive Lymphocytes Present (Not Present); Toxic Vacuolation Present (Not Present)
[2020-10-13] MEDS: cefTRIAXone 1,000 MG in 0.9 % Sodium Chloride Mini Bag 100 ML IVPB SCH (05:29)
[2020-10-13] MEDS ORDERED: Furosemide 40 MG/4 ML VIAL IVP SCH (06:00)
[2020-10-13] MEDS: Azithromycin 500 MG in 0.9 % Sodium Chloride 250 ML IVPB SCH (06:08)
[2020-10-13 08:18] LABS: Adenovirus Not Detected (Not Detect); Bordetella Pertussis Not Detected (Not Detect); Chlamydophila pneumoniae Not Detected (Not Detect); Coronavirus 229E Not Detected (Not Detect); Coronavirus HKU1 Not Detected (Not Detect); Coronavirus NL63 Not Detected (Not Detect); Coronavirus OC43 Not Detected (Not Detect); Human Metapneumovirus Not Detected (Not Detect); Human Rhinovirus/Enterovirus Not Detected (Not Detect); Influenza A Subtype 2009 H1 Not Detected (Not Detect); Influenza B Not Detected (Not Detect); Mycoplasma pneumoniae Not Detected (Not Detect); Parainfluenza Virus 1 Not Detected (Not Detect); Parainfluenza Virus 2 Not Detected (Not Detect); Parainfluenza Virus 3 Not Detected (Not Detect); Parainfluenza Virus 4 Not Detected (Not Detect); Respiratory Syncytial Virus Not Detected (Not Detect); SARS-CoV-2 Not Detected (Not Detect)
[2020-10-13] MEDS: Ipratropium/Albuterol Neb 3 ML IH SCH ×2 (10:40→15:24)
[2020-10-13] MEDS ORDERED: tiZANidine 4 MG TABLET PO PRN (10:44)
[2020-10-13] MEDS ORDERED: allopurinoL 100 MG TABLET PO PRN (14:08)
[2020-10-13] MEDS ORDERED: *HR* Warfarin 2.5 MG TABLET PO SCH (14:15)
[2020-10-13] MEDS ORDERED: Gabapentin 100 MG CAPSULE PO SCH (15:00)
[2020-10-13] MEDS ORDERED: allopurinoL 100 MG TABLET PO SCH (15:00)
[2020-10-13] MEDS ORDERED: Furosemide 20 MG/2 ML VIAL IVP ONE (15:19)
[2020-10-13] MEDS ORDERED: Levalbuterol Neb 0.63 MG/3 ML IH SCH (16:00)
[2020-10-13] MEDS ORDERED: Benzonatate 100 MG CAPSULE PO PRN (16:46)
[2020-10-13] MEDS ORDERED: Furosemide 20 MG/2 ML VIAL IVP SCH (17:00)
[2020-10-13] MEDS ORDERED: Furosemide 40 MG TABLET PO SCH (17:00)
[2020-10-13] MEDS ORDERED: *HR* Warfarin 2.5 MG TABLET PO ONE (18:00)
[2020-10-13] MEDS ORDERED: Warfarin perPT PO PRN (18:00)
[2020-10-13 18:16] LABS: Bilirubin,Urine Negative (Negative); Blood,Urine Negative (Negative); Clarity,Urine Clear (Clear); Color,Urine Light-Yellow (Yellow); Glucose,Urine (UA) Normal (Normal); Ketones,Urine Negative (Negative); Leukocyte Esterase,Urine Negative (Negative); Nitrite,Urine Negative (Negative); Protein,Urine Negative (Neg-Trace); Urobilinogen,Urine Normal (Normal)
[2020-10-13] MEDS: *HR* LORazepam 0.5 MG TABLET PO PRN (19:42)
[2020-10-13] MEDS: Levalbuterol Neb 0.63 MG/3 ML IH SCH ×2 (22:18→22:21)
[2020-10-14 02:24] LABS: Hemoglobin 7.3 g/dL (11.5-15.4)
[2020-10-14 02:26] LABS: Hematocrit 24.1 % (35.3-44.9); INR 2.7; Immature Platelets 27.2 % (1.1-6.1); Mean Corpuscular HGB Conc 30.3 g/dL (31.6-35.5); Mean Corpuscular Hemoglobin 28.3 pg (28.0-33.3); Mean Corpuscular Volume 93.4 fL (83.0-100.0); Mean Platelet Volume 13.5 fL (9.4-12.4); Nucleated Red Blood Cells 0.5 /100 WBC (0); Platelet Count 484 K/mcL (140-400); Red Blood Count 2.58 M/mcL (3.82-4.97); White Blood Count 15.5 K/mcL (4.3-11.1)
[2020-10-14 02:36] LABS: Albumin 3.3 g/dL (3.5-5.7); Albumin/Globulin Ratio 1.2 (1.1-2.2); Calcium 8.7 mg/dL (8.6-10.3); Globulin 2.8 g/dL (2.4-3.5); Potassium 5.2 mEq/L (3.5-5.1); Total Protein 6.1 g/dL (6.4-8.9)
[2020-10-14] MEDS: Levalbuterol Neb 0.63 MG/3 ML IH SCH ×5 (04:08→20:10)
[2020-10-14] MEDS ORDERED: Acetaminophen IV 1,000 MG/100 ML BAG IVPB ONE (04:35)
[2020-10-14 04:51] LABS: Eosinophils # 0.9 K/mcL (0.0-0.6); Lymphocytes # 3.1 K/mcL (0.6-4.6); Monocytes # 0.9 K/mcL (0.0-1.3); Neutrophils # 9.9 K/mcL (1.6-8.9)
[2020-10-14 04:52] LABS: Anisocytosis 1+ (Not Present); Platelet Estimate Increased (Normal); Reactive Lymphocytes Present (Not Present)
[2020-10-14] MEDS: Azithromycin 500 MG in 0.9 % Sodium Chloride 250 ML IVPB SCH (05:09)
[2020-10-14] MEDS: cefTRIAXone 1,000 MG in 0.9 % Sodium Chloride Mini Bag 100 ML IVPB SCH (05:12)
[2020-10-14 07:52] LABS: ABG Base Excess 0 mEq/L (-2 to 3); ABG HCO3 27 mEq/L (21-27); ABG Oxygen Saturation 96 % (95-98); ABG PCO2 58 mmHg (35-45); ABG PH 7.27 pH Units (7.32-7.45); ABG PO2 94 mmHg (85-104); ABG TCO2 29 mEq/L (20-26)
[2020-10-14] MEDS ORDERED: Furosemide 40 MG/4 ML VIAL IVP SCH (09:00)
[2020-10-14] MEDS: Pantoprazole 40 MG VIAL IVP SCH (10:52)
[2020-10-14] MEDS: Magnesium Oxide 400 MG TABLET PO SCH (10:56)
[2020-10-14] MEDS: Aspirin 81 MG TAB.CHEW PO SCH (10:57)
[2020-10-14] MEDS: Multivit/Ca/Min/Fe/FA 1 TAB TABLET PO SCH (10:57)
[2020-10-14 11:28] LABS: ABG Base Excess 2 mEq/L (-2 to 3); ABG HCO3 28 mEq/L (21-27); ABG Oxygen Saturation 99 % (95-98); ABG PCO2 53 mmHg (35-45); ABG PH 7.33 pH Units (7.32-7.45); ABG PO2 133 mmHg (85-104); ABG TCO2 30 mEq/L (20-26)
[2020-10-14] MEDS ORDERED: Albumin 25% 25gram/100mL 25 GM/100 ML IV.SOLN IVPB SCH (12:00)
[2020-10-14] MEDS ORDERED: Furosemide 40 MG/4 ML VIAL IVP ONE (13:30)
[2020-10-14 16:30] LABS: Bilirubin,Urine Negative (Negative); Blood,Urine Negative (Negative); Clarity,Urine Clear (Clear); Color,Urine Yellow (Yellow); Glucose,Urine (UA) Normal (Normal); Ketones,Urine Negative (Negative); Leukocyte Esterase,Urine Negative (Negative); Nitrite,Urine Negative (Negative); Protein,Urine Negative (Neg-Trace); Specific Gravity,Urine 1.016 (1.010-1.025); Urobilinogen,Urine Normal (Normal)
[2020-10-14] MEDS: Piperacillin/Tazobactam 3.375 GM in 0.9 % Sodium Chloride Mini Bag 100 ML IVPB SCH (17:29)
[2020-10-14 17:37] LABS: Protein/Creatinine Ratio,Urine 0.1 mg/mg (0.00-0.20)
[2020-10-14] MEDS ORDERED: *HR* Warfarin 2.5 MG TABLET PO ONE (18:00)
[2020-10-15] MEDS: Piperacillin/Tazobactam 3.375 GM in 0.9 % Sodium Chloride Mini Bag 100 ML IVPB SCH ×3 (00:07→16:59)
[2020-10-15] MEDS: Levalbuterol Neb 0.63 MG/3 ML IH SCH ×7 (00:12→23:54)
[2020-10-15] MEDS ORDERED: Acetaminophen IV 1,000 MG/100 ML BAG IVPB ONE (00:13)
[2020-10-15] MEDS: Azithromycin 500 MG in 0.9 % Sodium Chloride 250 ML IVPB SCH (05:06)
[2020-10-15] MEDS: Pantoprazole 40 MG VIAL IVP SCH (07:46)
[2020-10-15] MEDS: Magnesium Oxide 400 MG TABLET PO SCH (07:46)
[2020-10-15] MEDS: Multivit/Ca/Min/Fe/FA 1 TAB TABLET PO SCH (07:46)
[2020-10-15] MEDS: Aspirin 81 MG TAB.CHEW PO SCH (07:46)
[2020-10-15 10:35] LABS: Hematocrit 22.7 % (35.3-44.9); Nucleated Red Blood Cells 0.2 /100 WBC (0)
[2020-10-15 10:37] LABS: Eosinophils # 0.1 K/mcL (0.0-0.6); Hemoglobin 6.7 g/dL (11.5-15.4); Immature Platelets 26.7 % (1.1-6.1); Mean Corpuscular HGB Conc 29.5 g/dL (31.6-35.5); Mean Corpuscular Hemoglobin 27.9 pg (28.0-33.3); Mean Corpuscular Volume 94.6 fL (83.0-100.0); Platelet Count 355 K/mcL (140-400); Red Cell Distribution Width 18.9 % (11.5-14.5); White Blood Count 13.1 K/mcL (4.3-11.1)
[2020-10-15 11:05] LABS: Complement C3 90 mg/dL (87-200)
[2020-10-15 11:07] LABS: ABG Base Excess 1 mEq/L (-2 to 3); ABG HCO3 26 mEq/L (21-27); ABG Oxygen Saturation 100 % (95-98); ABG PCO2 47 mmHg (35-45); ABG PH 7.36 pH Units (7.32-7.45); ABG PO2 244 mmHg (85-104); ABG TCO2 28 mEq/L (20-26); Blood Gas Modality BiLevel; Blood Gas VT 400 cc
[2020-10-15 11:14] LABS: Albumin 3.2 g/dL (3.5-5.7); Albumin/Globulin Ratio 1.2 (1.1-2.2); Bilirubin,Total 1.1 mg/dL (0.3-1.0); Calcium 8.7 mg/dL (8.6-10.3); Globulin 2.6 g/dL (2.4-3.5); Potassium 5.3 mEq/L (3.5-5.1); Thyroid Stimulating Hormone 0.886 mcIU/mL (0.340-5.600); Total Protein 5.8 g/dL (6.4-8.9); Uric Acid 10.6 mg/dL (2.3-7.6)
[2020-10-15 11:29] LABS: Rheumatoid Factor < 10 IU/mL (Less than 14)
[2020-10-15 11:45] LABS: Lymphocytes # 3.5 K/mcL (0.6-4.6); Monocytes # 1.1 K/mcL (0.0-1.3); Neutrophils # 7.1 K/mcL (1.6-8.9)
[2020-10-15 11:46] LABS: Platelet Estimate Normal (Normal)
[2020-10-15 11:47] LABS: Large Platelets Present (Not Present); Reactive Lymphocytes Present (Not Present)
[2020-10-15 11:48] LABS: Anisocytosis 1+ (Not Present)
[2020-10-15 11:55] LABS: Vitamin B12 > 1500 pg/mL (250-1100)
[2020-10-15 11:57] LABS: Vitamin D 25 Hydroxy 35 ng/mL (30-80)
[2020-10-15] MEDS ORDERED: Albumin 25% 25gram/100mL 25 GM/100 ML IV.SOLN IVPB SCH ×2 (12:00→20:00)
[2020-10-15] MEDS ORDERED: 0.9 % Sodium Chloride 250 ML IVC SCH (12:15)
[2020-10-15 12:23] LABS: Hepatitis B Surface Antigen Nonreactive (Nonreactive)
[2020-10-15 12:52] LABS: Hepatitis C Virus Antibody Nonreactive (Nonreactive)
[2020-10-15 12:53] LABS: Hepatitis A Antibody IgM Nonreactive (Nonreactive); Hepatitis B Core IgM Nonreactive (Nonreactive)
[2020-10-15] MEDS ORDERED: Furosemide 40 MG/4 ML VIAL IVP ONE ×3 (13:30→21:30)
[2020-10-15] MEDS ORDERED: *HR* Warfarin 5 MG TABLET PO SCH (14:08)
[2020-10-15 14:36] LABS: Prothrombin Time 44.8 Seconds (9.4-12.1)
[2020-10-15] MEDS ORDERED: *HR* Warfarin 2.5 MG TABLET PO ONE (18:00)
[2020-10-15] MEDS: *HR* LORazepam 0.5 MG TABLET PO PRN (20:59)
[2020-10-15] MEDS: Gabapentin 100 MG CAPSULE PO SCH (21:35)
[2020-10-16] MEDS: Piperacillin/Tazobactam 3.375 GM in 0.9 % Sodium Chloride Mini Bag 100 ML IVPB SCH ×3 (00:17→17:08)
[2020-10-16] MEDS: Levalbuterol Neb 0.63 MG/3 ML IH SCH ×6 (03:38→23:47)
[2020-10-16] MEDS ORDERED: *HR* LORazepam 0.5 MG TABLET PO ONE (04:05)
[2020-10-16] MEDS: Azithromycin 500 MG in 0.9 % Sodium Chloride 250 ML IVPB SCH (04:13)
[2020-10-16 05:27] LABS: Mean Platelet Volume 13.8 fL (9.4-12.4); Nucleated Red Blood Cells 0.2 /100 WBC (0)
[2020-10-16 05:29] LABS: Hematocrit 25.9 % (35.3-44.9); Immature Platelets 27.7 % (1.1-6.1); Mean Corpuscular HGB Conc 30.9 g/dL (31.6-35.5); Mean Corpuscular Volume 93.8 fL (83.0-100.0); Platelet Count 408 K/mcL (140-400); Red Blood Count 2.76 M/mcL (3.82-4.97); Red Cell Distribution Width 17.7 % (11.5-14.5); White Blood Count 19.7 K/mcL (4.3-11.1)
[2020-10-16 05:39] LABS: Calcium 8.5 mg/dL (8.6-10.3); Potassium 5.1 mEq/L (3.5-5.1)
[2020-10-16 05:54] LABS: INR 6.1
[2020-10-16 06:53] LABS: Anisocytosis 1+ (Not Present); Large Platelets Present (Not Present); Lymphocytes # 3.6 K/mcL (0.6-4.6); Monocytes # 0.8 K/mcL (0.0-1.3); Neutrophils # 11.8 K/mcL (1.6-8.9); Reactive Lymphocytes Present (Not Present)
[2020-10-16 06:54] LABS: Platelet Estimate Normal (Normal)
[2020-10-16] MEDS: Aspirin 81 MG TAB.CHEW PO SCH (08:07)
[2020-10-16] MEDS: Multivit/Ca/Min/Fe/FA 1 TAB TABLET PO SCH (08:08)
[2020-10-16] MEDS: Gabapentin 100 MG CAPSULE PO SCH ×2 (08:08→14:57)
[2020-10-16] MEDS: Pantoprazole 40 MG VIAL IVP SCH (08:08)
[2020-10-16] MEDS: Magnesium Oxide 400 MG TABLET PO SCH (08:08)
[2020-10-16] MEDS ORDERED: Vancomycin 1,500 MG/265 ML IV.SOLN IVPB ONE (10:00)
[2020-10-16] MEDS ORDERED: *HR* FentaNYL (PF) 100 MCG/2 ML VIAL IVP ONE ×2 (11:16→16:57)
[2020-10-16] MEDS ORDERED: *HR* FentaNYL (PF) 100 MCG/2 ML VIAL IVP PRN (12:16)
[2020-10-16] MEDS ORDERED: Acetaminophen 325 MG TABLET PO PRN (15:13)
[2020-10-16] MEDS: *HR* FentaNYL (PF) 100 MCG/2 ML VIAL IVP PRN (20:37)
[2020-10-16] MEDS ORDERED: Gabapentin 100 MG CAPSULE PO SCH (21:00)
[2020-10-16 22:56] LABS: Lambda Qnt Free Light Chains 46.5 mg/L (5.71-26.30)
[2020-10-16 23:12] LABS: Urine Collection Volume NOT PROVIDED mL
[2020-10-17] MEDS: Piperacillin/Tazobactam 3.375 GM in 0.9 % Sodium Chloride Mini Bag 100 ML IVPB SCH ×3 (00:12→12:05)
[2020-10-17] MEDS: *HR* FentaNYL (PF) 100 MCG/2 ML VIAL IVP PRN (01:28)
[2020-10-17] MEDS: Levalbuterol Neb 0.63 MG/3 ML IH SCH ×6 (03:46→23:29)
[2020-10-17] MEDS: Azithromycin 500 MG in 0.9 % Sodium Chloride 250 ML IVPB SCH (04:22)
[2020-10-17 04:41] LABS: Hematocrit 26.2 % (35.3-44.9); Hemoglobin 7.8 g/dL (11.5-15.4); Immature Platelets 25.4 % (1.1-6.1); Mean Corpuscular HGB Conc 29.8 g/dL (31.6-35.5); Mean Corpuscular Hemoglobin 28.1 pg (28.0-33.3); Mean Corpuscular Volume 94.2 fL (83.0-100.0); Mean Platelet Volume 13.3 fL (9.4-12.4); Nucleated Red Blood Cells 0.2 /100 WBC (0); Platelet Count 373 K/mcL (140-400); Red Blood Count 2.78 M/mcL (3.82-4.97); Red Cell Distribution Width 18.1 % (11.5-14.5); White Blood Count 18.8 K/mcL (4.3-11.1)
[2020-10-17 04:43] LABS: INR 1.8; Prothrombin Time 20.6 Seconds (9.4-12.1)
[2020-10-17 04:52] LABS: Albumin 3.5 g/dL (3.5-5.7); Albumin/Globulin Ratio 1.2 (1.1-2.2); Bilirubin,Total 1.5 mg/dL (0.3-1.0); Calcium 9.2 mg/dL (8.6-10.3); Globulin 2.9 g/dL (2.4-3.5); Potassium 5.1 mEq/L (3.5-5.1); Total Protein 6.4 g/dL (6.4-8.9)
[2020-10-17 05:17] LABS: Large Platelets Present (Not Present); Lymphocytes # 3.8 K/mcL (0.6-4.6); Monocytes # 0.6 K/mcL (0.0-1.3); Neutrophils # 12.2 K/mcL (1.6-8.9); Reactive Lymphocytes Present (Not Present)
[2020-10-17 05:18] LABS: Anisocytosis 1+ (Not Present); Platelet Estimate Normal (Normal)
[2020-10-17] MEDS: *HR* HYDROcodone/Acet 5/325 mg TABLET PO PRN ×3 (05:49→21:25)
[2020-10-17 06:56] LABS: Kappa Qnt Free Light Chains 73.26 mg/L (3.30-19.40)
[2020-10-17] MEDS: Multivit/Ca/Min/Fe/FA 1 TAB TABLET PO SCH (09:00)
[2020-10-17] MEDS: Aspirin 81 MG TAB.CHEW PO SCH (09:00)
[2020-10-17] MEDS: Magnesium Oxide 400 MG TABLET PO SCH (09:00)
[2020-10-17] MEDS: Pantoprazole 40 MG VIAL IVP SCH (09:07)
[2020-10-17] MEDS ORDERED: *HR* FentaNYL (PF) 100 MCG/2 ML VIAL IVP PRN (15:59)
[2020-10-17] MEDS: *HR* LORazepam 0.5 MG TABLET PO PRN (23:18)
[2020-10-18 00:22] LABS: Alpha 2 Globulin (PEP) 0.64 g/dL (0.48-1.05); Beta Globulin (PEP) 0.59 g/dL (0.48-1.10)
[2020-10-18] MEDS: Piperacillin/Tazobactam 3.375 GM in 0.9 % Sodium Chloride Mini Bag 100 ML IVPB SCH (00:22)
[2020-10-18] MEDS: Levalbuterol Neb 0.63 MG/3 ML IH SCH ×5 (04:17→19:32)
[2020-10-18] MEDS: Azithromycin 500 MG in 0.9 % Sodium Chloride 250 ML IVPB SCH (04:21)
[2020-10-18] MEDS: *HR* HYDROcodone/Acet 5/325 mg TABLET PO PRN (04:28)
[2020-10-18] MEDS: *HR* LORazepam 0.5 MG TABLET PO PRN (04:28)
[2020-10-18 05:20] LABS: Calcium 9.1 mg/dL (8.6-10.3); Phosphorous 5.9 mg/dL (2.7-4.5); Potassium 5.5 mEq/L (3.5-5.1)
[2020-10-18 05:25] LABS: INR 1.3; Prothrombin Time 15.4 Seconds (9.4-12.1)
[2020-10-18 05:35] LABS: Hemoglobin 7.9 g/dL (11.5-15.4)
[2020-10-18 05:37] LABS: Hematocrit 26.6 % (35.3-44.9); Mean Corpuscular HGB Conc 29.7 g/dL (31.6-35.5); Mean Corpuscular Hemoglobin 28.5 pg (28.0-33.3); Nucleated Red Blood Cells 0.1 /100 WBC (0); Platelet Count 349 K/mcL (140-400); Red Blood Count 2.77 M/mcL (3.82-4.97); Red Cell Distribution Width 18.2 % (11.5-14.5); White Blood Count 17.2 K/mcL (4.3-11.1)
[2020-10-18 06:32] LABS: Anisocytosis 1+ (Not Present); Large Platelets Present (Not Present); Lymphocytes # 2.4 K/mcL (0.6-4.6); Neutrophils # 11.7 K/mcL (1.6-8.9); Reactive Lymphocytes Present (Not Present); Smudge Cells Present (Not Present)
[2020-10-18 07:19] LABS: IFE Reflexed NOT DONE
[2020-10-18] MEDS: *HR* LORazepam Oral Conc 2 MG/ML PO PRN (12:43)
[2020-10-18] MEDS: *HR* FentaNYL (PF) 100 MCG/2 ML VIAL IVP PRN ×9 (13:06→23:16)
[2020-10-18 16:57] LABS: Urine Collection Volume NOT PROVIDED mL
[2020-10-19] MEDS: *HR* FentaNYL (PF) 100 MCG/2 ML VIAL IVP PRN ×15 (00:22→16:43)
[2020-10-19] MEDS ORDERED: *HR* FentaNYL PATCH 50 MCG PATCH TD SCH (10:15)
[2020-10-19] MEDS ORDERED: *HR* FentaNYL PATCH 25 MCG PATCH TD SCH (12:45)
[2020-10-19] MEDS: FentaNYL (PF) 1,000 MCG/100 ML IV.SOLN IVC SCH (14:57)
[2020-10-19] MEDS: *HR* LORazepam Oral Conc 2 MG/ML PO PRN ×2 (18:35→20:34)
[2020-10-19] MEDS: Atropine 1% Opth Drops 100 DROP/5 ML BOTTLE SL PRN (20:41)
[2020-10-19] MEDS ORDERED: Scopolamine Patch 1.5 MG PATCH.TD72 TD SCH (20:45)
[2020-10-20] MEDS: *HR* LORazepam Oral Conc 2 MG/ML PO PRN (02:55)
[2020-10-20] MEDS: FentaNYL (PF) 1,000 MCG/100 ML IV.SOLN IVC SCH (10:28)
[2020-10-20] MEDS: Atropine 1% Opth Drops 100 DROP/5 ML BOTTLE SL PRN ×2 (13:22→21:08)
[2020-10-20 18:26] VITALS: TEMP 98.1
[2020-10-21 03:59] VITALS: BP 49/34; PULSE 99; O2SAT 88
[2020-10-21] MEDS: *HR* LORazepam Oral Conc 2 MG/ML PO PRN (04:36)
== END 2020-10-21 07:31 | disposition expired | DRG 871 ==
LOC: 3ANU 17:27 → EMEROOARM 17:27 → SUATTDRO 22:36 → 3ANU 23:32 → 2NENU 10-14 08:56 → SUATTDRO 10-14 14:03 → 2ANU 10-19 16:34
PROVIDERS: ADMIT Student in an Organized Health Care Education/Training Program; ATTEND Internal Medicine